=== PATIENT | female | born 1950 | race Caucasian/White ===

== ENCOUNTER 2019-01-02 12:10 | Observation (INO) | payer OTHER ==
--- NOTE | 2019-01-02 12:24 | PDOC ---
Rapid Medical Evaluation Chief Complaint: Chest Pain Time Seen by Provider: 01/02/19 12:21 Medical Evaluation: Allergies Allergy/AdvReac Type Severity Reaction Status Date / Time aspirin Allergy Verified 01/02/19 12:20 Penicillins Allergy Verified 01/02/19 12:20 Sulfa (Sulfonamide AdvReac Verified 01/02/19 12:20 Antibiotics) 01/02/19 12:21 I have performed a brief in-person evaluation of this patient. The patient presents with a chief complaint of: h/o HTN, DM, GERD present with complains of which described as epigastric pain radiating up the chest with nausea since this AM. Denies vomiting, sweats, MARQUEZ, dizziness. report taking pepcid for acid reflux today Pertinent physical exam findings: A&O x 3 in NAD. heart RRR. lungs CTAB I have ordered the following: EKG, CBC, CMP CARDIAC profile The patient will proceed to the ED for further evaluation. Discharge Disposition - Diagnosis Chest pain Qualifiers: Chest pain type: unspecified Qualified Code(s): R07.9 - Chest pain, unspecified - Discharge Dispostion Condition at time of disposition: Stable - Referrals - Patient Instructions - Post Discharge Activity
--- NOTE | 2019-01-02 13:01 | PDOC ---
History of Present Illness - General Chief Complaint: Chest Pain Stated Complaint: CHEST PAIN Time Seen by Provider: 01/02/19 12:21 History Source: Patient Exam Limitations: No Limitations - History of Present Illness Initial Comments: Pt is a 68 yo F, with PMH of HTN, NIDDM, and GERD, who is presenting with complaints of epigastric pain since 10AM this morning. Pt states the pain is intermittent, lasts for about 20 minutes, and radiates up to her mid-sternal chest. The pain was associated with nausea, but no diaphoresis nor vomiting. Pt took her regular dose of 20 mg PO famotidine, which usually resolves her symptoms. Pt states she continued to feel reflux and the pain did not improve, prompting her to call EMS. Pt denies any recent fevers/chills, headache, vision changes, syncope, palpitations, SOB, urinary symptoms, diarrhea/constipation, or leg swelling. PTs last endoscopy done 1 year ago, positive only for gastritis per pt. Pt is visiting from [place], and feels stressed because her sister's . Pt has not taken her glyburide for the past 2 days, as she forgot it in [place]. Social: Pt denies any cigarette, alcohol, or drug use. Pt denies any recent travel or sick contacts. Surgical: "ablation of varicose veins and removal of clots" per pt. Family: brother with CABG in 40s. 01/03/19 01:18 Past History - Travel Traveled outside of the country in the last 30 days: No Close contact w/someone who was outside of country & ill: No - Past Medical History Allergies/Adverse Reactions: Allergies Allergy/AdvReac Type Severity Reaction Status Date / Time aspirin Allergy Verified 01/02/19 12:20 Penicillins Allergy Verified 01/02/19 12:20 Sulfa (Sulfonamide AdvReac Verified 01/02/19 12:20 Antibiotics) Home Medications: Ambulatory Orders Cyanocobalamin [Vitamin B12 -] 1,000 mcg PO DAILY 01/02/19 Enalapril Maleate [Vasotec -] 10 mg PO DAILY 01/02/19 Famotidine 20 mg PO DAILY 01/02/19 Folic Acid 1 mg PO DAILY 01/02/19 Glyburide 5 mg PO DAILY 01/02/19 Rosuvastatin [Crestor -] 5 mg PO HS 01/02/19 COPD: No Diabetes: Yes GI Disorders: Yes Disorders: (GERD) HTN: Yes Hypercholesterolemia: Yes - Immunization History Immunization Up to Date: Yes - Suicide/Smoking/Psychosocial Hx Smoking History: Never smoked Hx Alcohol Use: No Drug/Substance Use Hx: No Review of Systems - Review of Systems Able to Perform ROS?: Yes Is the patient limited Liberian proficient: No Constitutional: Yes: See HPI, Weight Stable. No: Chills, Diaphoresis, Fever, Loss of Appetite, Malaise, Weakness HEENTM: No: Blurred Vision, Double Vision Respiratory: No: Cough, Orthopnea, Shortness of Breath Cardiac (ROS): Yes: See HPI, Chest Pain. No: Edema, Irregular Heart Rate, Lightheadedness, Palpitations, Syncope, Chest Tightness ABD/GI: Yes: See HPI, Nausea, Indigestion. No: Abdominal Distended, Abd. Pain w / defecation, Constipated, Diarrhea, Poor Appetite, Poor Fluid Intake : No: Burning, Dysuria, Flank Pain, Pain, Urgency Musculoskeletal: No: Back Pain, Joint Pain Integumentary: No: Rash Neurological: No: Headache, Numbness, Paresthesia, Weakness, Unsteady Gait, Dizziness Psychiatric: No: Sleep Pattern Change, Change in Appetite Endocrine: No: Increased Urine, Change in Weight Hematologic/Lymphatic: No: Anemia, Blood Clots, Easy Bleeding, Easy Bruising All Other Systems: Reviewed and Negative *Physical Exam - Vital Signs Last Vital Signs Temp Pulse Resp BP Pulse Ox 76 18 188/72 H 97 01/02/19 12:20 01/02/19 12:20 01/02/19 12:20 01/02/19 12:20 - Physical Exam Comments: HTN or arrival, improved to 155/82 on exam, pt afebrile. Pt in NAD, normal body habitus. Pt alert and oriented x3. non licensed operator generally intact, muscular strength and sensation intact. No midline spinal tenderness, step-offs, or crepitus. Head normocephalic, atraumatic. Eyes PERRLA, EOMI. Oropharynx without erythema or exudates, no LAD b/l. No nasal congestion, hearing intact. Clear heart sounds, S1/S2, no JVD, b/l pedal edema, or heart murmur. Clear lung sounds, no respiratory distress, wheezes, crackles, or accessory muscle use. Mild epigastric abdominal TTP. No CVA tenderness to palpation, no rebound, no guarding. Abdomen soft, non-distended, and with normoactive bowel sounds. Skin without jaundice or rash. 01/02/19 12:50 01/03/19 01:11 Vital Signs - Vital Signs #1 Blood Pressure: 157/82 MAP: 107 BP Location: Right Arm Blood Pressure Position: Supine Pulse Rate: 75 Respiratory Rate: 12 O2 Sat by Pulse Oximetry (%): 100 Oxygen Delivery Method: Room Air Heart Score/ECG Review - History History: Slightly suspicious - Electrocardiogram EKG: Normal - Age Age: >/= 65 - Risk Factors Risk Factors Heart Score: Yes Hx Hypertension, Yes Hx Diabetes, Yes Positive family hx of cardiac disease Based on the list above the patient has:: >/=3 risk factors or Hx atherosclerotic disease - Troponin Troponin: </= normal limit - Score Heart Score - Total: 4 ED Treatment Course - LABORATORY CBC & Chemistry Diagram: 01/02/19 12:48 01/02/19 12:48 - RADIOLOGY Radiology Studies Ordered: Category Date Time Status CHEST PA & LAT [RAD] Stat Radiology 01/02/19 12:47 Ordered Medical Decision Making - Medical Decision Making Pt was seen at bedside, also will be seen by attending Dr. Le. Pt presenting with complaints of epigastric pain since 10AM this morning. Pt states the pain is intermittent, lasts for about 20 minutes, and radiates up to her mid-sternal chest. The pain was associated with nausea, but no diaphoresis nor vomiting. Pt took her regular dose of 20 mg PO famotidine, which usually resolves her symptoms. Pt states she continued to feel reflux and the pain did not improve, prompting her to call EMS. Pt denies any recent fevers/chills, headache, vision changes, syncope, palpitations, SOB, urinary symptoms, diarrhea/constipation, or leg swelling. Considering GERD/reflux vs ACS vs perforated gastric/duodenal ulcer vs stress/ anxiety. Ordered work-up including CBC, CMP, troponin, ECG, chest x-ray, UA, urine culture. Provided 30 mg PO maalox, viscous lidocaine, 4 mg IV zofran for improvement of nausea and discomfort. Will continue to reassess pt and monitor for symptomatic improvement. ECG: NSR, intervals WNL. No TWIs or significant ST segment changes. No prior ECG for comparison. 01/02/19 12:50 CBC: WBC 10.7, mildly elevated CMP generally WNL, glucose 167, will monitor Trop <.02 Chest x-ray with no obvious infiltrates or cardiomegaly. UA negative for infection. Pt states pain improved after interventions, but is still experiencing intermittent epigastric and chest pain. Paging hospitalist team for admission. 01/02/19 14:32 Pt accepted for med/surg observation (Dr. Ricardo). Pt stable in the ED, HTN improved from presentation. 01/02/19 15:11 01/03/19 01:13 *DC/Admit/Observation/Transfer Diagnosis at time of Disposition: Epigastric pain, Atypical chest pain - Discharge Dispostion Condition at time of disposition: Stable Decision to Admit order: Yes - Referrals - Patient Instructions - Post Discharge Activity
[2019-01-02 13:05] LABS: BASO % 0.3 % (0-2.0); EOS % 0.2 % (0-4.5); HEMATOCRIT 42.4 % (32.4-45.2); HEMOGLOBIN 13.7 GM/dL (10.7-15.3); LYMPH % 10.1 % (8-40); MCH 25.9 pg (25.7-33.7); MCHC 32.3 g/dl (32.0-36.0); MEAN CELL VOLUME 80.1 fl (80-96); MEAN PLT VOLUME 8.3 fl (7.5-11.1); MONO % 4.1 % (3.8-10.2); NEUT % 85.3 % (42.8-82.8); PLATELET COUNT 220 K/MM3 (134-434); RDW 16.4 % (11.6-15.6); WHITE BLOOD COUNT 10.7 K/mm3 (4.0-10.0)
[2019-01-02 13:40] LABS: ALBUMIN 3.8 g/dl (3.4-5.0); ALK PHOS 86 U/L (45-117); ANION GAP 7 MMOL/L (8-16); BILIRUBIN,TOTAL 0.3 mg/dL (0.2-1); BLOOD UREA NITROGEN 14 mg/dL (7-18); CHLORIDE 105 mmol/L (98-107); CO2 25 mmol/L (21-32); CREATININE 0.7 mg/dL (0.55-1.3); GLUCOSE,RANDOM 169 mg/dL (74-106); LIPASE 147 U/L (73-393); SGOT/AST 13 U/L (15-37); SGPT/ALT 18 U/L (13-61); SODIUM 137 mmol/L (136-145); TOT PROT 7.8 g/dl (6.4-8.2)
[2019-01-02] MEDS ORDERED: FAMOTIDINE 20 MG/50 ML IVPB 20 MG/50 ML MG IVPB ONE ×2 (13:43→13:52)
[2019-01-02] MEDS ORDERED: ONDANSETRON 4 MG/2 ML VIAL IVPUSH ONE (13:43)
[2019-01-02] MEDS ORDERED: MAG HYDROX/AL HYDROX/SIMETH 30 ML UNIT-DOSE CUP PO ONE (13:43)
[2019-01-02] MEDS ORDERED: LIDOCAINE VISCOUS 2% ORAL/TOP 20 ML UNIT-DOSE CUP MM ONE (13:43)
[2019-01-02] MEDS ORDERED: MAG HYDROX/AL HYDROX/SIMETH 30 ML UNIT-DOSE CUP ONE (13:51)
[2019-01-02] MEDS ORDERED: LIDOCAINE VISCOUS 2% ORAL/TOP 20 ML UNIT-DOSE CUP ONE (13:51)
[2019-01-02] MEDS ORDERED: ONDANSETRON 4 MG/2 ML VIAL ONE (13:52)
--- NOTE | 2019-01-02 14:14 | PDOC ---
Documentation entered by Jason Abdi SCRIBE, acting as scribe for Jorge Luis Le MD. Jorge Luis Le MD: This documentation has been prepared by the Trinidad harrison Xhesika, SCRIBE, under my direction and personally reviewed by me in its entirety. I confirm that the documentation accurately reflects all work, treatment, procedures, and medical decision making performed by me. Attending Attestation - Resident Resident Name: BekaJyoti - ED Attending Attestation I have performed the following: I have examined & evaluated the patient, The case was reviewed & discussed with the resident, I agree w/resident's findings & plan, Exceptions are as noted - HPI HPI: 01/02/19 13:55 The patient is a 68 year old female, with a significant PMH of DM, HLD, HTN, and GERD who presents to the emergency department with chest pain. The patient states she is visiting from [place] for a few weeks because her sister's recently . Pt endorses epigastric pain radiating up to her chest. She has h/o GERD but states that this feels very different. She took a zantac with no relief. Pt denies SOB, denies diaphoresis. Endorses nausea without vomiting. The patient states her brother from CABG in his 40s. The patient denies shortness of breath, headache and dizziness. Denies fever, chills, vomiting, diarrhea and constipation. Denies dysuria, frequency, urgency and hematuria. Allergies: Aspirin, Penicillins, Sulfa PCP: Located in [place] - Physicial Exam PE: 01/02/19 14:17 "GENERAL: Awake, alert, and fully oriented, in no acute distress. HEAD: No signs of trauma EYES: PERRLA, EOMI, sclera anicteric, conjunctiva clear ENT: Auricles normal inspection, hearing grossly normal, nares patent, oropharynx clear without exudates. Moist mucosa NECK: Nontender, no stepoffs, Normal ROM, supple, no lymphadenopathy, JVD, or masses LUNGS: Breath sounds equal, clear to auscultation bilaterally. No wheezes, and no crackles HEART: Regular rate and rhythm, normal S1 and S2, no murmurs, rubs or gallops ABDOMEN: Soft, nontender, normoactive bowel sounds. No guarding, no rebound. No masses EXTREMITIES: Normal range of motion, no edema. No clubbing or cyanosis. No cords, erythema, or tenderness NEUROLOGICAL: Cranial nerves II through XII intact. 5/5 strength and sensation in all extremities, Normal speech, normal gait, normal cerebellar function SKIN: Warm, Dry, normal turgor, no rashes or lesions noted. - Medical Decision Making 01/02/19 14:17 68 F with epigastric and chest pain. Possible gastritis/GERD. Benign abdomen on exam. Pt with normal EKG with several cardiac risk factors. HEART score is 4. - Labs, trop, lipase - GI cocktail - CXR - Admit tele
[2019-01-02 14:31] LABS: PH,URINE 7.5 (5.0-8.0); URINE APPEARANCE CLEAR; URINE BILIRUBIN NEGATIVE (NEGATIVE); URINE COLOR YELLOW; URINE GLUCOSE (UA) NEGATIVE (NEGATIVE); URINE KETONE NEGATIVE (NEGATIVE); URINE LEUK ESTERASE NEGATIVE (NEGATIVE); URINE NITRITE NEGATIVE (NEGATIVE); URINE PROTEIN NEGATIVE (NEGATIVE); URINE UROBILINOGEN 0.2 mg/dL (0.2-1.0)
--- NOTE | 2019-01-02 15:10 | PN ---
Teaching Attending Note Name of Resident: Rafy Rogers ATTENDING PHYSICIAN STATEMENT I saw and evaluated the patient. I reviewed the resident's note and discussed the case with the resident. I agree with the resident's findings and plan as documented. SUBJECTIVE: Patient is a 68 yo F with a PMHx of DM, HTN, HLD, GERD, Gastritis, visiting from [place], presented with epigastric abdominal "discomfort" that started 30 min after eating her breakfast. Patient is also c/o having chest aggrevated by her GERD. She was diagnosed with gastritis a year ago. She had an endoscopy about a year ago. In the ER patient was given Famotidine with relief. She says she now has very minimal epigastric discomfort. OBJECTIVE: Vital Signs Temperature Pulse Rate 75 01/02/19 14:40 Respiratory Rate 12 01/02/19 14:40 Blood Pressure 157/82 01/02/19 14:40 O2 Sat by Pulse Oximetry (%) 100 01/02/19 14:40 GENERAL: The patient is awake, alert, and fully oriented, in no acute distress. HEAD: Normal with no signs of trauma. EYES: PERRL, extraocular movements intact, sclera anicteric, conjunctiva clear. ENT: Ears normal, oropharynx clear without exudates, moist mucous membranes. NECK: Trachea midline, full range of motion, supple. LUNGS: Breath sounds equal, clear to auscultation bilaterally, no wheezes, no crackles, no accessory muscle use. HEART: Regular rate and rhythm, S1, S2 without murmur, rub or gallop. ABDOMEN: Soft, nontender, nondistended, normoactive bowel sounds, no guarding, no rebound, no hepatosplenomegaly, no masses. EXTREMITIES: 2+ pulses, warm, well-perfused, no edema. NEUROLOGICAL: Cranial nerves II through XII grossly intact. Normal speech, gait not observed. PSYCH: Normal mood, normal affect. SKIN: Warm, dry, normal turgor, no rashes or lesions noted CBCD WBC 10.7 K/mm3 (4.0-10.0) H 01/02/19 12:48 RBC 5.30 M/mm3 (3.60-5.2) H 01/02/19 12:48 Hgb 13.7 GM/dL (10.7-15.3) 01/02/19 12:48 Hct 42.4 % (32.4-45.2) 01/02/19 12:48 MCV 80.1 fl (80-96) 01/02/19 12:48 MCHC 32.3 g/dl (32.0-36.0) 01/02/19 12:48 RDW 16.4 % (11.6-15.6) H 01/02/19 12:48 Plt Count 220 K/MM3 (134-434) 01/02/19 12:48 MPV 8.3 fl (7.5-11.1) 01/02/19 12:48 CMP Sodium 137 mmol/L (136-145) 01/02/19 12:48 Potassium 4.0 mmol/L (3.5-5.1) 01/02/19 12:48 Chloride 105 mmol/L (98-107) 01/02/19 12:48 Carbon Dioxide 25 mmol/L (21-32) 01/02/19 12:48 Anion Gap 7 MMOL/L (8-16) L 01/02/19 12:48 BUN 14 mg/dL (7-18) 01/02/19 12:48 Creatinine 0.7 mg/dL (0.55-1.3) 01/02/19 12:48 Random Glucose 169 mg/dL (74-106) H 01/02/19 12:48 Calcium 9.0 mg/dL (8.5-10.1) 01/02/19 12:48 Total Bilirubin 0.3 mg/dL (0.2-1) 01/02/19 12:48 AST 13 U/L (15-37) L 01/02/19 12:48 ALT 18 U/L (13-61) 01/02/19 12:48 Alkaline Phosphatase 86 U/L (45-117) 01/02/19 12:48 Total Protein 7.8 g/dl (6.4-8.2) 01/02/19 12:48 Albumin 3.8 g/dl (3.4-5.0) 01/02/19 12:48 CARDIAC ENZYMES Creatine Kinase 75 U/L (26-192) 01/02/19 12:48 Troponin I < 0.02 ng/ml (0.00-0.05) 01/02/19 12:48 Hepatic Panel Total Bilirubin 0.3 mg/dL (0.2-1) 01/02/19 12:48 AST 13 U/L (15-37) L 01/02/19 12:48 ALT 18 U/L (13-61) 01/02/19 12:48 Alkaline Phosphatase 86 U/L (45-117) 01/02/19 12:48 Albumin 3.8 g/dl (3.4-5.0) 01/02/19 12:48 echo 12/2018: nl lv/rv, mild tr, nl rvsp ecg: sr, nl intervals, no ischemic changes ASSESSMENT AND PLAN: Patient is a 68yo female with PMHx of DM, HTN, HLD, GERD, Gastritis, visiting from [place], presented with epigastric abdominal discomfort with radiation to her chest with nausea, but her symptoms are different this time from previous Gerd exacerbations # Atypical chest pain r/o acs, CE q6 x2, ekg, cardio consult, echo ordered. lipid panel, allergic to aspirin can't give , heart score 4 #HTN: cont Vastotec 10mg #DM hold home dm glyburide, BGM, SSI patient said she hasnt taken her Glyburide since coming from [facility]. Requests prescription for a few days worth on discharge until she goes back to [place].
--- NOTE | 2019-01-02 15:39 | HP ---
CHIEF COMPLAINT: epigastric pain PCP: in [place] HISTORY OF PRESENT ILLNESS: Patient is a 68 yo F with a PMHx of DM, HTN, HLD, GERD, Gastritis, visiting from [place], presented with epigastric abominal "discomfort" that started 30 min after eating her breakfast. Patient said she was eating her oatmeal,, crackers, and 4 oz of apple, then had her "usual" Gerd episode, but this time with minimal relief with Zantac. She said it improved after she made a cup of tea. She said she usually gets epigastric discomfort but this time she developed nausea but with no vomiting. She was diagnosed with gastritis a year ago. She had an endoscopy about a year ago. In the ER patient was given Famotidine with relief. She says she now has very minimal epigastric discomfort. She denies chest pain, sob, chills, fevers, dizziness, cough, diarrhea, urinary changes. ER course was notable for: (1) EKG: NSR. No acute St/changes Recent Travel: from [place] PAST MEDICAL HISTORY: per hpi PAST SURGICAL HISTORY: denies Social History: Smoking: denies Alcohol: denies Drugs: denies Family History: Allergies aspirin Allergy (Verified 01/02/19 12:20) Penicillins Allergy (Verified 01/02/19 12:20) Sulfa (Sulfonamide Antibiotics) Adverse Reaction (Verified 01/02/19 12:20) HOME MEDICATIONS: Home Medications Medication Instructions Recorded Cyanocobalamin [Vitamin B12 -] 1,000 mcg PO DAILY 01/02/19 Enalapril Maleate [Vasotec -] 10 mg PO DAILY 01/02/19 Famotidine 20 mg PO DAILY 01/02/19 Folic Acid 1 mg PO DAILY 01/02/19 Glyburide 5 mg PO DAILY 01/02/19 Rosuvastatin [Crestor -] 5 mg PO HS 01/02/19 REVIEW OF SYSTEMS CONSTITUTIONAL: Absent: fever, chills, diaphoresis, generalized weakness, malaise, loss of appetite, weight change HEENT: Absent: rhinorrhea, nasal congestion, throat pain, throat swelling, difficulty swallowing, mouth swelling, ear pain, eye pain, visual changes CARDIOVASCULAR: Absent: chest pain, syncope, palpitations, irregular heart rate, lightheadedness , peripheral edema RESPIRATORY: Absent: cough, shortness of breath, dyspnea with exertion, orthopnea, wheezing, stridor, hemoptysis GASTROINTESTINAL: abd pain, nausea Absent: abdominal distension, vomiting, diarrhea, constipation, melena, hematochezia GENITOURINARY: Absent: dysuria, frequency, urgency, hesitancy, hematuria, flank pain, genital pain MUSCULOSKELETAL: Absent: myalgia, arthralgia, joint swelling, back pain, neck pain SKIN: Absent: rash, itching, pallor HEMATOLOGIC/IMMUNOLOGIC: Absent: easy bleeding, easy bruising, lymphadenopathy, frequent infections ENDOCRINE: Absent: unexplained weight gain, unexplained weight loss, heat intolerance, cold intolerance NEUROLOGIC: Absent: headache, focal weakness or paresthesias, dizziness, unsteady gait, seizure, mental status changes, bladder or bowel incontinence PSYCHIATRIC: Absent: anxiety, depression, suicidal or homicidal ideation, hallucinations. PHYSICAL EXAMINATION Vital Signs - 24 hr 01/02/19 01/02/19 01/02/19 12:20 14:29 15:23 Pulse Rate 76 Pulse Rate [#1] 75 Pulse Rate [ 82 Apical] Respiratory 18 18 Rate Respiratory 12 Rate [#1] Blood Pressure 188/72 H Blood Pressure 157/82 [#1] Blood Pressure 157/77 [Right Arm] O2 Sat by Pulse 97 98 Oximetry (%) O2 Sat by Pulse 100 Oximetry (%) [ #1] GENERAL: Awake, alert, and fully oriented, in no acute distress. HEAD: Normal with no signs of trauma. EYES: Pupils equal, round and reactive to light, extraocular movements intact, sclera anicteric, conjunctiva clear. No lid lag. EARS, NOSE, THROAT: Ears normal, nares patent, oropharynx clear without exudates. Moist mucous membranes. NECK: Normal range of motion, supple without lymphadenopathy, JVD, or masses. LUNGS: Breath sounds equal, clear to auscultation bilaterally. No wheezes, and no crackles. HEART: Regular rate and rhythm, normal S1 and S2 without murmur, rub or gallop. ABDOMEN: Soft, nontender, not distended, normoactive bowel sounds, no guarding, no rebound, no masses. LOWER EXTREMITIES: 2+ pulses, warm, well-perfused. No calf tenderness. No peripheral edema. NEUROLOGICAL: Cranial nerves II-XII intact. Normal speech. Normal gait. Laboratory Results - last 24 hr 01/02/19 01/02/19 01/02/19 12:48 12:48 14:10 WBC 10.7 H RBC 5.30 H Hgb 13.7 Hct 42.4 MCV 80.1 MCH 25.9 MCHC 32.3 RDW 16.4 H Plt Count 220 MPV 8.3 Absolute Neuts (auto) 9.1 H Neutrophils % 85.3 H Lymphocytes % 10.1 Monocytes % 4.1 Eosinophils % 0.2 Basophils % 0.3 Nucleated RBC % 0 Sodium 137 Potassium 4.0 Chloride 105 Carbon Dioxide 25 Anion Gap 7 L BUN 14 Creatinine 0.7 Est GFR (CKD-EPI)AfAm 103.91 Est GFR (CKD-EPI)NonAf 89.65 Random Glucose 169 H Calcium 9.0 Total Bilirubin 0.3 AST 13 L ALT 18 Alkaline Phosphatase 86 Creatine Kinase 75 Troponin I < 0.02 Total Protein 7.8 Albumin 3.8 Lipase 147 Urine Color Yellow Urine Appearance Clear Urine pH 7.5 Ur Specific Dawson 1.010 Urine Protein Negative Urine Glucose (UA) Negative Urine Ketones Negative Urine Blood Negative Urine Nitrite Negative Urine Bilirubin Negative Urine Urobilinogen 0.2 Ur Leukocyte Esterase Negative ASSESSMENT/PLAN: 68 yo F with a PMHx of DM, HTN, HLD, GERD, Gastritis, visiting from [place] , presented with epigastric abominal discomfort and nausea. #Atypical Chest pain/Abdominal discomfort -r/o ACS, heart score 4 -Likely 2/2 GERD. Patient with known hx of gastritis and GERD -first trop neg. FU 2nd set -tele monitoring -Cardio consult: Dr. Richards -EKG: NSR, no ST/T changes -Famotidine for GERD -Zofran prn for nausea -allergic to ASA #HTN -cont Vastotec 10mg #DM -hold home dm glyburide -patient said she hasnt taken her Glyburide since coming from [place]. Requests prescription for a few days worth on discharge until she goes back to [place]. -BGM -SSI #FEN -No iv fluids -monitor -diabetic diet #dvt ppx -EAB, SCds Visit type - Emergency Visit Emergency Visit: Yes ED Registration Date: 01/02/19 Care time: The patient presented to the Emergency Department on the above date and was hospitalized for further evaluation of their emergent condition. - New Patient This patient is new to me today: Yes Date on this admission: 01/03/19 - Critical Care Critical Care patient: No
[2019-01-02] MEDS ORDERED: ONDANSETRON 4 MG/2 ML VIAL IVPUSH PRN (15:55)
[2019-01-02] MEDS ORDERED: RANITIDINE HCL 150 MG TABLET (FP) PO SCH (16:00)
--- NOTE | 2019-01-02 16:05 | ECHO ---
Name: JENNY MADELIN GUSMANIDA Exam:Adult Echocardiogram Study Date: 01/02/2019 03:29 PM Age: 68 yrs Reason For Study: R/O LVDYSFUNCTION Height: 60 in Weight: 145 lb BSA: 1.6 m2 MMode/2D Measurements & Calculations IVSd: 0.92 cm Ao root diam: 2.4 cm LVIDd: 4.4 cm LA dimension: 3.2 cm LVIDs: 3.0 cm LVPWd: 0.83 cm EDV(Teich): 87.9 ml LVOT diam: 2.0 cm ESV(Teich): 35.2 ml Doppler Measurements & Calculations MV E max carmelo: 66.0 cm/sec Ao V2 max: 159.8 cm/sec MV A max carmelo: 91.9 cm/sec Ao max P.2 mmHg MV E/A: 0.72 Ao V2 mean: 113.5 cm/sec MV dec time: 0.22 sec Ao mean P.9 mmHg Ao V2 VTI: 32.4 cm NICOL(I,D): 2.9 cm2 NICOL(V,D): 2.8 cm2 LV V1 max P.3 mmHg SV(LVOT): 95.4 ml LV V1 mean P.2 mmHg LV V1 max: 144.4 cm/sec LV V1 mean: 107.4 cm/sec LV V1 VTI: 31.0 cm Med Peak E' Carmelo: 5.0 cm/sec Med E/e': 13.1 Lat Peak E' Carmelo: 7.7 cm/sec Lat E/e': 8.6 Left Ventricle Left ventricular systolic function is normal. Ejection Fraction = 60-65%. The transmitral spectral Do ppler flow pattern is suggestive of impaired LV relaxation. Right Ventricle The right ventricle is normal in size and function. Atria Normal left and right atrial size and function. Mitral Valve The mitral valve is normal in structure and function. There is no mitral valve stenosis. There is tra ce to mild mitral regurgitation. Tricuspid Valve The tricuspid valve is normal in structure and function. There is mild tricuspid regurgitation. Right ventricular systolic pressure is normal. Aortic Valve The aortic valve opens well. No hemodynamically significant valvular aortic stenosis. No aortic regur gitation is present. Pulmonic Valve The pulmonic valve is not well seen, but is grossly normal. There is no pulmonic valvular stenosis. T here is no pulmonic valvular regurgitation. Great Vessels The aortic root is normal size. Pericardium/Pleura There is no pericardial effusion. Interpretation Summary Left ventricular systolic function is normal. Ejection Fraction = 60-65%. The transmitral spectral Doppler flow pattern is suggestive of impaired LV relaxation. The right ventricle is normal in size and function. There is trace to mild mitral regurgitation. There is mild tricuspid regurgitation. Right ventricular systolic pressure is normal. The aortic root is normal size. There is no pericardial effusion. MD Connolly *Kirit 01/02/2019 04:04 PM
[2019-01-02] MEDS ORDERED: INSULIN SLIDING SCALE (NOVOLOG) 1 VIAL SQ SCH (16:30)
--- NOTE | 2019-01-02 16:56 | CON.CARD ---
Cardiology Consult (text) - Consultation Consultation Note: cc: chest pain hpi: 68 f hx htn, hld, dm, gerd here with cp. No hx hrt dz. This am at rest noticed central epigastric burning, moved to upper central chest as well. [place] like her gerd but more severe. No sob palps dizzy loc pnd orthopnea le edema. Treated for gerd in er and now feels better. Lives in [place], visiting family here in [place]. pmh: per hpi psh: nc social: no tob fam: no premature cad, scd ros: per hpi; all others normal meds: Home Medications Medication Instructions Recorded Cyanocobalamin [Vitamin B12 -] 1,000 mcg PO DAILY 01/02/19 Enalapril Maleate [Vasotec -] 10 mg PO DAILY 01/02/19 Famotidine 20 mg PO DAILY 01/02/19 Folic Acid 1 mg PO DAILY 01/02/19 Glyburide 5 mg PO DAILY 01/02/19 Rosuvastatin [Crestor -] 5 mg PO HS 01/02/19 pe: Vital Signs Period Temp Pulse Resp BP Sys/Albert Pulse Ox Last 24 Hr 98.1 F 75-82 12-18 157-188/72-82 97-100 nad, no jvd rrr s1s2 no mrg cta bl nl eff aaox3 no le e/c/c abd nt nd pos bs no jaundice diaphoresis pos dp pt no carotid bruits Laboratory Last Values WBC 10.7 K/mm3 (4.0-10.0) H 01/02/19 12:48 RBC 5.30 M/mm3 (3.60-5.2) H 01/02/19 12:48 Hgb 13.7 GM/dL (10.7-15.3) 01/02/19 12:48 Hct 42.4 % (32.4-45.2) 01/02/19 12:48 MCV 80.1 fl (80-96) 01/02/19 12:48 MCH 25.9 pg (25.7-33.7) 01/02/19 12:48 MCHC 32.3 g/dl (32.0-36.0) 01/02/19 12:48 RDW 16.4 % (11.6-15.6) H 01/02/19 12:48 Plt Count 220 K/MM3 (134-434) 01/02/19 12:48 MPV 8.3 fl (7.5-11.1) 01/02/19 12:48 Absolute Neuts (auto) 9.1 K/mm3 (1.5-8.0) H 01/02/19 12:48 Neutrophils % 85.3 % (42.8-82.8) H 01/02/19 12:48 Lymphocytes % 10.1 % (8-40) 01/02/19 12:48 Monocytes % 4.1 % (3.8-10.2) 01/02/19 12:48 Eosinophils % 0.2 % (0-4.5) 01/02/19 12:48 Basophils % 0.3 % (0-2.0) 01/02/19 12:48 Nucleated RBC % 0 % (0-0) 01/02/19 12:48 Sodium 137 mmol/L (136-145) 01/02/19 12:48 Potassium 4.0 mmol/L (3.5-5.1) 01/02/19 12:48 Chloride 105 mmol/L (98-107) 01/02/19 12:48 Carbon Dioxide 25 mmol/L (21-32) 01/02/19 12:48 Anion Gap 7 MMOL/L (8-16) L 01/02/19 12:48 BUN 14 mg/dL (7-18) 01/02/19 12:48 Creatinine 0.7 mg/dL (0.55-1.3) 01/02/19 12:48 Est GFR (CKD-EPI)AfAm 103.91 01/02/19 12:48 Est GFR (CKD-EPI)NonAf 89.65 01/02/19 12:48 Random Glucose 169 mg/dL (74-106) H 01/02/19 12:48 Calcium 9.0 mg/dL (8.5-10.1) 01/02/19 12:48 Total Bilirubin 0.3 mg/dL (0.2-1) 01/02/19 12:48 AST 13 U/L (15-37) L 01/02/19 12:48 ALT 18 U/L (13-61) 01/02/19 12:48 Alkaline Phosphatase 86 U/L (45-117) 01/02/19 12:48 Creatine Kinase 75 U/L (26-192) 01/02/19 12:48 Troponin I < 0.02 ng/ml (0.00-0.05) 01/02/19 16:00 Total Protein 7.8 g/dl (6.4-8.2) 01/02/19 12:48 Albumin 3.8 g/dl (3.4-5.0) 01/02/19 12:48 Lipase 147 U/L (73-393) 01/02/19 12:48 Urine Color Yellow 01/02/19 14:10 Urine Appearance Clear 01/02/19 14:10 Urine pH 7.5 (5.0-8.0) 01/02/19 14:10 Ur Specific [place] 1.010 (1.010-1.035) 01/02/19 14:10 Urine Protein Negative (NEGATIVE) 01/02/19 14:10 Urine Glucose (UA) Negative (NEGATIVE) 01/02/19 14:10 Urine Ketones Negative (NEGATIVE) 01/02/19 14:10 Urine Blood Negative (NEGATIVE) 01/02/19 14:10 Urine Nitrite Negative (NEGATIVE) 01/02/19 14:10 Urine Bilirubin Negative (NEGATIVE) 01/02/19 14:10 Urine Urobilinogen 0.2 mg/dL (0.2-1.0) 01/02/19 14:10 Ur Leukocyte Esterase Negative (NEGATIVE) 01/02/19 14:10 cxr: clear lungs echo 12/2018: nl lv/rv, mild tr, nl rvsp ecg: sr, nl intervals, no ischemic changes a/p: 68 f hx htn, hld, dm, gerd here with cp. cp: -atypical cp, most likely gerd -trops negx2, ecg and echo unremarkable -sxs improved now, pt feels well -gerd management per PMD htn: -cont home jean paul hld: -cont home statin
[2019-01-02 18:06] VITALS: BMI 26.5
[2019-01-02] MEDS: ENALAPRIL MALEATE 10 MG TABLET (FP) PO SCH (20:13)
[2019-01-02] MEDS: CYANOCOBALAMIN 1,000 MCG TABLET (FP) PO SCH (21:01)
[2019-01-02] MEDS ORDERED: ROSUVASTATIN CA 5 MG TABLET (FP) PO SCH (22:00)
[2019-01-03 06:09] VITALS: BP 140/54; PULSE 72; TEMP 98
[2019-01-03 07:12] LABS: BASO % 0.3 % (0-2.0); EOS % 0.9 % (0-4.5); HEMATOCRIT 40.7 % (32.4-45.2); HEMOGLOBIN 13.4 GM/dL (10.7-15.3); LYMPH % 22.8 % (8-40); MCH 26.2 pg (25.7-33.7); MCHC 32.8 g/dl (32.0-36.0); MEAN PLT VOLUME 8.3 fl (7.5-11.1); MONO % 8.1 % (3.8-10.2); NEUT % 67.9 % (42.8-82.8); RBC 5.09 M/mm3 (3.60-5.2); RDW 16.2 % (11.6-15.6); WHITE BLOOD COUNT 8.3 K/mm3 (4.0-10.0)
[2019-01-03 07:43] LABS: CHOLESTEROL 141 mg/dL (50-200); HDL CHOLESTEROL 61 mg/dL (40-60); TRIGLYCERIDES 95 mg/dL (0-150)
[2019-01-03 07:48] LABS: ALBUMIN 3.7 g/dl (3.4-5.0); BILIRUBIN,TOTAL 0.7 mg/dL (0.2-1); BLOOD UREA NITROGEN 9.5 mg/dL (7-18); CREATININE 0.7 mg/dL (0.55-1.3); MAGNESIUM 2.3 mg/dL (1.8-2.4); PHOSPHOROUS 3.5 mg/dL (2.5-4.9); TOT PROT 7.6 g/dl (6.4-8.2)
--- NOTE | 2019-01-03 08:40 | EKG ---
Test Reason : Blood Pressure : / mmHG Vent. Rate : 088 BPM Atrial Rate : 088 BPM P-R Int : 168 ms QRS Dur : 080 ms QT Int : 376 ms P-R-T Axes : 065 039 037 degrees QTc Int : 454 ms NORMAL SINUS RHYTHM NORMAL ECG NO PREVIOUS ECGS AVAILABLE Confirmed by WILLIAM TRUJILLO, FRANCISCO ([id number]) on 01/03/2019 8:40:32 AM Referred By: Confirmed By:FRANCISCO THOMAS MD
[2019-01-03] MEDS: ENALAPRIL MALEATE 10 MG TABLET (FP) PO SCH (10:37)
[2019-01-03] MEDS: CYANOCOBALAMIN 1,000 MCG TABLET (FP) PO SCH (10:37)
--- NOTE | 2019-01-03 12:36 | DS ---
Physical Exam: SUBJECTIVE: Patient seen and examined Patient is comfortable with no acute distress. OBJECTIVE: Temperature 98 F 01/03/19 06:00 Pulse Rate 72 01/03/19 06:00 Respiratory Rate 20 01/03/19 06:00 Blood Pressure 140/54 L 01/03/19 06:00 O2 Sat by Pulse Oximetry (%) 100 01/03/19 01:20 PHYSICAL EXAM GENERAL: The patient is awake, alert, and fully oriented, in no acute distress. HEAD: Normal with no signs of trauma. EYES: PERRL, extraocular movements intact, sclera anicteric, conjunctiva clear. ENT: Ears normal, oropharynx clear without exudates, moist mucous membranes. NECK: Trachea midline, full range of motion, supple. LUNGS: Breath sounds equal, clear to auscultation bilaterally, no wheezes, no crackles, no accessory muscle use. HEART: Regular rate and rhythm, S1, S2 without murmur, rub or gallop. ABDOMEN: Soft, nontender, nondistended, normoactive bowel sounds, no guarding, no rebound, no hepatosplenomegaly, no masses. EXTREMITIES: 2+ pulses, warm, well-perfused, no edema. NEUROLOGICAL: Cranial nerves II through XII grossly intact. Normal speech, gait not observed. PSYCH: Normal mood, normal affect. SKIN: Warm, dry, normal turgor, no rashes or lesions noted. LABS CBCD WBC 8.3 K/mm3 (4.0-10.0) 01/03/19 06:30 RBC 5.09 M/mm3 (3.60-5.2) 01/03/19 06:30 Hgb 13.4 GM/dL (10.7-15.3) 01/03/19 06:30 Hct 40.7 % (32.4-45.2) 01/03/19 06:30 MCV 80.0 fl (80-96) 01/03/19 06:30 MCHC 32.8 g/dl (32.0-36.0) 01/03/19 06:30 RDW 16.2 % (11.6-15.6) H 01/03/19 06:30 Plt Count 220 K/MM3 (134-434) 01/02/19 12:48 MPV 8.3 fl (7.5-11.1) 01/03/19 06:30 CMP Sodium 139 mmol/L (136-145) 01/03/19 06:30 Potassium 4.0 mmol/L (3.5-5.1) 01/03/19 06:30 Chloride 107 mmol/L (98-107) 01/03/19 06:30 Carbon Dioxide 25 mmol/L (21-32) 01/03/19 06:30 Anion Gap 6 MMOL/L (8-16) L 01/03/19 06:30 BUN 9.5 mg/dL (7-18) 01/03/19 06:30 Creatinine 0.7 mg/dL (0.55-1.3) 01/03/19 06:30 Random Glucose 113 mg/dL (74-106) H 01/03/19 06:30 Calcium 9.0 mg/dL (8.5-10.1) 01/03/19 06:30 Total Bilirubin 0.7 mg/dL (0.2-1) 01/03/19 06:30 AST 11 U/L (15-37) L 01/03/19 06:30 ALT 16 U/L (13-61) 01/03/19 06:30 Alkaline Phosphatase 85 U/L (45-117) 01/03/19 06:30 Total Protein 7.6 g/dl (6.4-8.2) 01/03/19 06:30 Albumin 3.7 g/dl (3.4-5.0) 01/03/19 06:30 CARDIAC ENZYMES Creatine Kinase 75 U/L (26-192) 01/02/19 12:48 Troponin I < 0.02 ng/ml (0.00-0.05) 01/02/19 16:00 Current Medications Generic Name Dose Route Start Last Admin Trade Name Malcolmq PRN Reason Stop Dose Admin Cyanocobalamin 1,000 mcg 01/02/19 16:00 01/03/19 10:37 Vitamin B12 - PO 1,000 mcg DAILY HARLAN Administration Enalapril Maleate 10 mg 01/02/19 16:00 01/03/19 10:37 Vasotec - PO 10 mg DAILY HARLAN Administration Insulin Aspart 1 vial 01/02/19 16:30 01/02/19 21:32 Novolog Vial Sliding Scale - SQ 2 units ACHS HARLAN Administration Protocol Ondansetron HCl 4 mg 01/02/19 15:55 Zofran Injection IVPUSH Q6H PRN NAUSEA Rosuvastatin Calcium 5 mg 01/02/19 22:00 01/02/19 21:01 Crestor - PO 5 mg HS [facility] Administration Home Medications Medication Instructions Recorded Cyanocobalamin [Vitamin B12 -] 1,000 mcg PO DAILY 01/02/19 Enalapril Maleate [Vasotec -] 10 mg PO DAILY 01/02/19 Famotidine 20 mg PO DAILY 01/02/19 Folic Acid 1 mg PO DAILY 01/02/19 Glyburide 5 mg PO DAILY 01/02/19 Rosuvastatin [Crestor -] 5 mg PO HS 01/02/19 echo 12/2018: nl lv/rv, mild tr, nl rvsp ecg: sr, nl intervals, no ischemic changes HOSPITAL COURSE: Date of Admission:01/02/19 Date of Discharge: 01/03/19 Patient is a 68yo female with PMHx of DM, HTN, HLD, GERD, Gastritis, visiting from [place], presented with epigastric abdominal discomfort with chest pain. # Atypical chest pain r/o acs, CE 3 sets are negative. with heart score of 4 #HTN: cont Vasotec 10mg #T2DM continue glyburide, Dc patient home. Minutes to complete discharge: 32 Discharge Summary Reason For Visit: EPIGASTRIC PAIN Current Active Problems Atypical chest pain (Acute) Epigastric pain (Acute) Condition: Stable - Instructions - Home Medications Comprehensive Discharge Medication List: Ambulatory Orders Cyanocobalamin [Vitamin B12 -] 1,000 mcg PO DAILY 01/02/19 Enalapril Maleate [Vasotec -] 10 mg PO DAILY 01/02/19 Famotidine 20 mg PO DAILY 01/02/19 Folic Acid 1 mg PO DAILY 01/02/19 Glyburide 5 mg PO DAILY 01/02/19 Rosuvastatin [Crestor -] 5 mg PO HS 01/02/19 This patient is new to me today: No Emergency Visit: Yes ED Registration Date: 01/02/19 Care time: The patient presented to the Emergency Department on the above date and was hospitalized for further evaluation of their emergent condition. Critical Care patient: No - Discharge Referral Referred to [facility] Med [facility].: No
--- NOTE | 2019-01-03 12:39 | PN ---
Progress Note (short form) - Note Progress Note: s: no cp sob palps dizzy o: Vital Signs Period Temp Pulse Resp BP Sys/Albert Pulse Ox Last 24 Hr 98 F-98.4 F 72-82 12-20 140-158/54-82 98-100 nad, no jvd rrr s1s2 no mrg cta bl nl eff aaox3 no le e/c/c abd nt nd pos bs no jaundice diaphoresis Current Medications Generic Name Dose Route Start Last Admin Trade Name Freq PRN Reason Stop Dose Admin Cyanocobalamin 1,000 mcg 01/02/19 16:00 01/03/19 10:37 Vitamin B12 - PO 1,000 mcg DAILY HARLAN Administration Enalapril Maleate 10 mg 01/02/19 16:00 01/03/19 10:37 Vasotec - PO 10 mg DAILY HARALN Administration Insulin Aspart 1 vial 01/02/19 16:30 01/02/19 21:32 Novolog Vial Sliding Scale - SQ 2 units ACHS HARLAN Administration Protocol Ondansetron HCl 4 mg 01/02/19 15:55 Zofran Injection IVPUSH Q6H PRN NAUSEA Rosuvastatin Calcium 5 mg 01/02/19 22:00 01/02/19 21:01 Crestor - PO 5 mg HS HARLAN Administration CBC, BMP 01/03/19 06:30 01/03/19 06:30 cxr: clear lungs echo 12/2018: nl lv/rv, mild tr, nl rvsp ecg: sr, nl intervals, no ischemic changes a/p: 68 f hx htn, hld, dm, gerd here with cp. cp: -atypical cp, most likely gerd -trops neg, ecg and echo unremarkable -sxs improved now, pt feels well -gerd management per PMD htn: -cont home jean paul hld: -cont home statin cardiac ku stable for dc
[2019-01-03 16:45] LABS: PLATELET COUNT 260 K/MM3 (134-434); PLATELET ESTIMATE ADEQUATE
== END 2019-01-03 14:38 | disposition home or self-care (01) ==
LOC: JER 12:10 → JERBED 14:38 → J6S 17:33
PROVIDERS: ADMIT Internal Medicine; ATTEND Internal Medicine
PROC: 3E033GC Introduction of Other Therapeutic Substance into Peripheral Vein, Percutaneous Approach (ICD-10-PCS; principal; 2019-01-02)
PROC: 3E013VG Introduction of Insulin into Subcutaneous Tissue, Percutaneous Approach (ICD-10-PCS; 2019-01-02)
DX: R10.13 Epigastric pain (principal); R07.89 Other chest pain; I10 Essential (primary) hypertension; E78.5 Hyperlipidemia, unspecified; E11.9 Type 2 diabetes mellitus without complications; K21.9 Gastro-esophageal reflux disease without esophagitis; Z88.0 Allergy status to penicillin; Z88.6 Allergy status to analgesic agent; Z88.2 Allergy status to sulfonamides; Z79.84 Long term (current) use of oral hypoglycemic drugs
CPT/HCPCS: 36415; 71046-TC-FY; 80053; 80061; 81003; 82550; 82962; 83690; 83721; 83735; 84100; 84484; 85025; 87086; 93005; 93010; 93306-TC; 96365; 96372; 96375; 99285-25; G0378